=== PATIENT | male | born 1990 | race Caucasian/White ===

== ENCOUNTER 2025-05-27 10:12 | Emergency (ER) | payer OTHER, MEDICAID ==
[~2025-05-27] VITALS: Ht 177.8 cm; Wt 75.0 kg
[2025-05-27 10:17] VITALS: BP 111/75; PULSE 115; RESP 17; TEMP 36.7; O2SAT 100
[2025-05-27 10:30] VITALS: O2SAT 96
== END 2025-05-27 11:46 ==
LOC: ER 10:12
DX: S00.93XA Contusion of unspecified part of head, initial encounter (principal); F12.90 Cannabis use, unspecified, uncomplicated; F17.200 Nicotine dependence, unspecified, uncomplicated; J45.909 Unspecified asthma, uncomplicated; W22.09XA Striking against other stationary object, initial encounter; Y93.89 Activity, other specified; Y92.89 Other specified places as the place of occurrence of the external cause; Y99.8 Other external cause status
CPT/HCPCS: 99284